=== PATIENT | male | born 1970 | race Caucasian/White ===

== ENCOUNTER 2017-02-27 23:51 | Emergency (ER) | payer BC ==
[~2017-02-27] VITALS: Ht 182.9 cm; Wt 90.7 kg
[~2017-02-27 23:51] MED LIST: DICLOFENAC SODI75 M2 PO; FLEXERIL10 MG PO; PREDNISONE 20MG20 MG PO
[2017-02-28] MEDS ORDERED: APAP/HYDROCODON1 TA9 PO (00:09)
[2017-02-28] MEDS ORDERED: TIZANIDINE HCL 44 MG NG (00:09)
--- NOTE | 2017-02-28 00:31 | Emergency Room Report ---
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 N Clinical Suspician of Infection? N Mental Status: 1 - Regular (Normal Baseline) Sepsis Risk:Possible Sepsis Risk Have you (or family members/close friends) recently traveled outside the [place]? N If Yes, where/when: Have you had exposure to infectious disease within the past month? N TB? Other? Specify: Source patient, RN notes reviewed, police, old records Exam Limitations no limitations Comment reported use of heroin today but reports feels ok - has hx of htn untreated in past and hx of anxiety Cardiac Chest Pain Chest pain indicative of cardiac No Timing/Duration this evening Severity moderate ALLERGIES Coded Allergies: codeine (I-HIVES 01/19/17) Home Medications Active Scripts Cyclobenzaprine Hcl (Flexeril) 10 MG PO TID PRN muscle #90 TAB Ref 1 Prov: 03/23/16 Diclofenac Sodium 75 MG PO BID #60 ECT Ref 1 Prov: 03/23/16 Reported Medications HYDROCODONE/ACETAMINOPHEN (Hydrocodon-Acetaminoph 7.5-325) 1 TAB PO TID #90 TIZANIDINE HCL (Tizanidine Hcl 4 Mg Tablet) 4 MG NG DAILY #30 History Medical History General CAD? No Angina: No PA: No Hypertension? No Hyperlipidemia? No CHF? No DVT? No PE? No COPD? No Asthma? No Anemia? No GERD? No Gastric ulcers? No GI Bleed? No Hernia? No Thyroid Problems? No Hypothyroidism? No CVA? No Seizures? No Diabetes? No Renal Insuffiency? No End Stage Renal Disease? No UTI? No Stones? No BPH? No GB Disease: No Nephritic Syndrome? No Asplenia? No Hepatitis? No Sickle Cell Disease? No Arthritis? No Migraines? No Cataracts? No Glaucoma? No MRSA? No HIV? No TB? No Anxiety? Yes Depression? No Cancer? No More? Yes Additional hx: IV DRUG ABUSE Immunization Hx DT/Tetanus 5-10 Years Ago Surgical Hx Previous Surgery?Y L THUMB Social History Smoking Hx Smoker: Current Every Day Smoker Tobacco: Yes Type Cigarettes Packs/day < 1 Pack Alcohol Alcohol: No Drugs none Review of Systems All Other Systems Reviewed and Negative Constitutional denies fever Eyes denies drainage ENT denies: epistaxis. Respiratory denies cough Cardiovascular denies chest pain, denies syncope Gastrointestinal denies abdominal pain, denies diarrhea, denies vomiting Genitourinary denies: dysuria, frequency, hesitancy, hematuria. Musculoskeletal denies back pain, denies joint pain, denies joint swelling, denies neck pain Skin denies rash Psychiatric/Neurological denies headache, denies seizure Physical Exam Vital Signs Vital Signs Date Time Temp Pulse Resp B/P Pulse O2 O2 Flow FiO2 Ox Delivery Rate 02/28 0036 126 20 160/95 93 02/27 2358 99.8 132 20 170/123 93 - WBC >12,000 or <4,000 or 10% bands? 2 or more SIRS Criteria Met? B/P:170/123 MAP:138 Creatinine >2.0? UA output<0.5ml/kg/hr for 2 hrs? Platelet count >100,000? Lactate >2.0mmol/1? INR >1.2 or PTT > than 60 sec? Evidence of Organ Dysfunction? Provider documented clinical suspician of infection? N Sepsis Criteria Count: 2 Sepsis Risk: Possible Sepsis Risk General Appearance no apparent distress Eye Exam - bilateral eye PERRL, bilateral eye EOMI Ear, Nose, Throat normal ENT inspection Neck supple Respiratory Status No: respiratory distress. Lung Sounds bilateral: lungs clear. 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 No Departure Departure Time of Disposition 0029 Disposition DC Home or Self Care(routine) Clinical Impression Primary Impression: Medical clearance for incarceration Secondary Impressions: Elevated BP without diagnosis of hypertension Condition STABLE Patient Instructions DI for High Blood Pressure Additional Instructions please see pcp about bp issues Discharge Counseling Counseled pt/family regarding diagnosis, follow up needs ED Critical Care Critical Care No at 0038
--- NOTE | 2017-02-28 00:31 | Emergency Room Report ---
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 N Clinical Suspician of Infection? N Mental Status: 1 - Regular (Normal Baseline) Sepsis Risk:Possible Sepsis Risk Have you (or family members/close friends) recently traveled outside the [place]? N If Yes, where/when: Have you had exposure to infectious disease within the past month? N TB? Other? Specify: Source patient, RN notes reviewed, police, old records Exam Limitations no limitations Comment reported use of heroin today but reports feels ok - has hx of htn untreated in past and hx of anxiety Cardiac Chest Pain Chest pain indicative of cardiac No Timing/Duration this evening Severity moderate ALLERGIES Coded Allergies: codeine (I-HIVES 01/19/17) Home Medications Active Scripts Cyclobenzaprine Hcl (Flexeril) 10 MG PO TID PRN muscle #90 TAB Ref 1 Prov: 03/23/16 Diclofenac Sodium 75 MG PO BID #60 ECT Ref 1 Prov: 03/23/16 Reported Medications HYDROCODONE/ACETAMINOPHEN (Hydrocodon-Acetaminoph 7.5-325) 1 TAB PO TID #90 TIZANIDINE HCL (Tizanidine Hcl 4 Mg Tablet) 4 MG NG DAILY #30 History Medical History General CAD? No Angina: No [place]: No Hypertension? No Hyperlipidemia? No CHF? No DVT? No PE? No COPD? No Asthma? No Anemia? No GERD? No Gastric ulcers? No GI Bleed? No Hernia? No Thyroid Problems? No Hypothyroidism? No CVA? No Seizures? No Diabetes? No Renal Insuffiency? No End Stage Renal Disease? No UTI? No Stones? No BPH? No GB Disease: No Nephritic Syndrome? No Asplenia? No Hepatitis? No Sickle Cell Disease? No Arthritis? No Migraines? No Cataracts? No Glaucoma? No MRSA? No HIV? No TB? No Anxiety? Yes Depression? No Cancer? No More? Yes Additional hx: IV DRUG ABUSE Immunization Hx DT/Tetanus 5-10 Years Ago Surgical Hx Previous Surgery?Y L THUMB Social History Smoking Hx Smoker: Current Every Day Smoker Tobacco: Yes Type Cigarettes Packs/day < 1 Pack Alcohol Alcohol: No Drugs none Review of Systems All Other Systems Reviewed and Negative Constitutional denies fever Eyes denies drainage ENT denies: epistaxis. Respiratory denies cough Cardiovascular denies chest pain, denies syncope Gastrointestinal denies abdominal pain, denies diarrhea, denies vomiting Genitourinary denies: dysuria, frequency, hesitancy, hematuria. Musculoskeletal denies back pain, denies joint pain, denies joint swelling, denies neck pain Skin denies rash Psychiatric/Neurological denies headache, denies seizure Physical Exam Vital Signs Vital Signs Date Time Temp Pulse Resp B/P Pulse O2 O2 Flow FiO2 Ox Delivery Rate 02/28 0036 126 20 160/95 93 02/27 2358 99.8 132 20 170/123 93 - WBC >12,000 or <4,000 or 10% bands? 2 or more SIRS Criteria Met? B/P:170/123 MAP:138 Creatinine >2.0? UA output<0.5ml/kg/hr for 2 hrs? Platelet count >100,000? Lactate >2.0mmol/1? INR >1.2 or PTT > than 60 sec? Evidence of Organ Dysfunction? Provider documented clinical suspician of infection? N Sepsis Criteria Count: 2 Sepsis Risk: Possible Sepsis Risk General Appearance no apparent distress Eye Exam - bilateral eye PERRL, bilateral eye EOMI Ear, Nose, Throat normal ENT inspection Neck supple Respiratory Status No: respiratory distress. Lung Sounds bilateral: lungs clear. 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 No Departure Departure Time of Disposition 0029 Disposition DC Home or Self Care(routine) Clinical Impression Primary Impression: Medical clearance for incarceration Secondary Impressions: Elevated BP without diagnosis of hypertension Condition STABLE Patient Instructions DI for High Blood Pressure Additional Instructions please see pcp about bp issues Discharge Counseling Counseled pt/family regarding diagnosis, follow up needs ED Critical Care Critical Care No at 0038
[2017-02-28 00:46] VITALS: BP 156/94
--- OUTSIDE RECORDS SUMMARY | 2017-02-28 01:00 | External Medical Summary Rpt ---
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 [address]- Discharge Disposition: OP Self Care or Home Attending Physician: BEN ZAPATA II, MD-ANS Admitting Physician: BEN ZAPATA II, MD-ANS Referring Physician: BEN ZAPATA II, MD-ANS Reason for Visit PM Vital Signs No data available for this section Problem List No data available for this section Allergies, Adverse Reactions, Alerts No data available for this section Medications No data available for this section Results No data available for this section Immunizations No data available for this section Procedures No data available for this section Social History No data available for this section Assessment and Plan No data available for this section Hospital Discharge Instructions No data available for this section
--- OUTSIDE RECORDS SUMMARY | 2017-02-28 01:00 | External Medical Summary Rpt ---
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 [address]- [phone] Discharge Disposition: OP Self Care or Home [...]
--- OUTSIDE RECORDS SUMMARY | 2017-02-28 01:02 | External Medical Summary Rpt | CCD ---
Author Author , [facility] Organization [facility] Address Unknown Phone [email or web address] Purpose Continuity of Care Document - 01-19-2017 through 2016 Problems Code Diagnosis DOS Provider Status [id number] S82.402A UNSP FRACTURE OF SHAFT OF LEFT FIBULA, INIT FOR CLOS FX Results Labs Lab Lab Date Result Refere Interp Status Commen Order Detail nces retati t Range on Comprehensive metabolic panel (01-19-2017 17:30) Protein = 7.6 6.4-8.2 complet total 017 gm/dL ed ser/isaura 17:30 s ALT = 63 12-78 complet (SGPT) 017 U/L ed ser/isaura 17:30 s Serum = 34 15-37 complet or 017 U/L ed plasma 17:30 asparta te aminotr ansfera Serum = 140 136-145 complet sodium 017 mmoL/L ed measure 17:30 ment Serum = 3.6 3.5-5.1 complet potassi 017 mmoL/L ed um 17:30 measure ment Serum = 72 74-106 complet or 017 mg/dL ed plasma 17:30 glucose measure ment (mas Serum = 3.5 1.3-3.2 complet globuli 017 gm/dL ed n 17:30 measure ment (mass/v olume) Estimat = 81 >60 complet ed 017 ML/MIN ed glomeru 17:30 lar filtrat ion rate (GF Comment: REFERENCE RANGE: >60 ML/MIN/1.73 SQUARE METERS Comment: If this patient is -[place], then multiply the Comment: result by 1.210. Estimat = 118 50-200 complet ion of 017 ML/MIN ed creatin 17:30 ine renal clearan ce Serum = 1.0 0.70-1. complet or 017 mg/dL 30 ed plasma 17:30 creatin ine measure ment ( Carbon = 33 21.0-32 complet dioxide 017 mmoL/L .0 ed 17:30 measure ment Serum = 103 98-107 complet or 017 mmoL/L ed plasma 17:30 chlorid e measure ment (mo Serum = 8.8 8.5-10. complet or 017 mg/dL 1 ed plasma 17:30 calcium measure ment (mas Serum = 11 7-18 complet or 017 mg/dL ed plasma 17:30 urea nitroge n measure men Serum = 0.9 0.2-1.0 complet or 017 mg/dL ed plasma 17:30 total bilirub in measure m Serum = 106 46-116 complet or 017 U/L ed plasma 17:30 alkalin e phospha tase ranjit Serum = 4.1 3.4-5.0 complet or 017 gm/dL ed plasma 17:30 albumin measure ment (mas Serum = 1.2 1.1-1.8 complet or 017 ed plasma 17:30 albumin /globul in mass ra Cardiac enzymes (01-19-2017 17:30) Serum < 0.02 0.00-0. complet or 017 ng/mL 06 ed plasma 17:30 troponi n i.cardi ac measu Serum = 235 39-308 complet or 017 U/L ed plasma 17:30 creatin e kinase measure m Serum = 1.4 0.0-3.6 complet or 017 ng/mL ed plasma 17:30 creatin e kinase MB measu Serum = 0.6 0-4.0 complet or 017 U/L ed plasma 17:30 creatin e kinase MB (CK-M CBC w auto diff (01-19-2017 17:30) Absolut = 2.2 0.7-4.5 complet e 017 K/mm3 ed lymphoc 17:30 yte count Blood = 13.3 14.1-18 complet hemoglo 017 g/dL .0 ed bin 17:30 measure ment (mass/v olum Blood = 38.8 42.0-52 complet hematoc 017 % .0 ed rit 17:30 (volume fractio n) Granulo = 60.2 37.0-80 complet cyte 017 % .0 ed percent 17:30 age Blood = 4.2 1.3-8.0 complet granulo 017 K/mm3 ed cytes 17:30 automat ed count (numb Automat = 1.8 % 0.1-12. complet ed 017 0 ed blood 17:30 eosinop hils/10 0 leukocy t Automat = 0.1 0.0-0.4 complet ed 017 K/mm3 ed blood 17:30 eosinop hil count Baso % = 0.2 % 0.1-2.0 complet 017 ed 17:30 Automat = 0.0 0-0.2 complet ed 017 K/MM3 ed blood 17:30 basophi l count (count/ vo Blood = 7.0 4.8-10. complet leukocy 017 K/MM3 8 ed mich 17:30 count (number /volume ) Automat = 14.5 11.5-17 complet ed 017 % .5 ed erythro 17:30 cyte distrib ution width Red = 4.48 4.6-6.2 complet blood 017 M/mm3 ed cell 17:30 count Blood = 214 142-424 complet platele 017 K/mm3 ed t count 17:30 Automat = 7.4 7.4-10. complet ed 017 fl 4 ed blood 17:30 platele t mean volume ranjit Mckean % = 5.7 % 1.7-9.3 complet 017 ed 17:30 Absolut = 0.4 0.1-1.0 complet e 017 K/mm3 ed monocyt 17:30 e count Automat = 86.6 82.2-97 complet ed 017 fl .8 ed erythro 17:30 cyte mean corpusc ular v Automat = 34.2 31.8-35 complet ed 017 g/dl .4 ed erythro 17:30 cyte mean corpusc ular h Mean = 29.6 27-31.2 complet corpusc 017 pg ed ular 17:30 hemoglo bin ([facility]) determ Lymphoc 01-19-2 = 32.0 10-50 complet yte 017 % ed count, 17:30 blood, automat ed
--- OUTSIDE RECORDS SUMMARY | 2017-02-28 01:02 | External Medical Summary Rpt | CCD ---
Demographics Preferred Language Tongan Marital Status Unknown Sabianism Affiliation Unknown Race Unknown Ethnic Group Unknown Author Author , MONA COLON Address Unknown Phone Immunization No patient found.
--- OUTSIDE RECORDS SUMMARY | 2017-02-28 01:02 | External Medical Summary Rpt | CCD ---
Author Author , [facility]AR[facility] Organization [facility] Address Unknown Phone [email or web address] Purpose Continuity of Care Document - 01-19-2017 through 2016 Problems Code Diagnosis DOS Provider Status [id number] S82.402A UNSP FRACTURE OF SHAFT OF LEFT [...] SQUARE METERS Comment: If this patient is -[place], then multiply the Comment: result by 1.210. [...] blood 17:30 platele t mean volume ranjit Owen % = 5.7 % 1.7-9.3 complet 017 [...]
--- OUTSIDE RECORDS SUMMARY | 2017-02-28 01:02 | External Medical Summary Rpt | CCD ---
Demographics Preferred Language Libyan Marital Status Unknown Episcopalian Affiliation Unknown Race Unknown Ethnic Group Unknown Author Author , MONA COLON Address Unknown Phone Immunization No patient found.
== END 2017-02-28 ==
LOC: ER 23:51
DX: Z02.89 Encounter for other administrative examinations (principal); F11.20 Opioid dependence, uncomplicated; I10 Essential (primary) hypertension; F41.9 Anxiety disorder, unspecified; Z88.5 Allergy status to narcotic agent; F17.210 Nicotine dependence, cigarettes, uncomplicated